=== PATIENT | female | born 1985 | race Caucasian/White ===

== ENCOUNTER 2020-04-26 13:46 | Inpatient (IN) | payer OTHER ==
[~2020-04-26] VITALS: Ht 167.6 cm; Wt 68.2 kg
[~2020-04-26 13:46] MED LIST: DEXAMETHASONE SOD PHOS 4 MG/ML VIAL IVP ONE; FentaNYL CITRATE-PF 100 MCG/2 ML VIAL IVP ONE; HYDROmorphone 2 MG/ML SYRINGE IVP ONE; KETOROLAC TROMETHAMINE 60 MG/2 ML VIAL IM ONE; MIDAZOLAM HCL 2 MG/2 ML VIAL IVP ONE; ONDANSETRON HCL 4 MG/2 ML VIAL IVP ONE; PROPOFOL 1% 20 ML VIAL IVP ONE; ROCURONIUM BROMIDE 10 MG/ML 5 ML VIAL IVP ONE; SUCCINYLCHOLINE CHLORIDE 20 MG/ML 10 ML VIAL IVP ONE
[2020-04-26 16:47] LABS: BASOPHILS % (AUTO) 0.3 % (0.0-2.0); EOSINOPHILS % (AUTO) 0 % (1.0-6.0); HEMATOCRIT 39.5 % (36-46); HEMOGLOBIN 13.7 g/dL (12.0-16.0); LYMPHOCYTES # (AUTO) 0.9 K/uL (1.0-4.8); LYMPHOCYTES % (AUTO) 10.2 % (22.0-44.0); MEAN CORPUSCULAR HGB CONC 34.7 G/dL (31.0-37.0); MEAN CORPUSCULAR VOLUME 92 fL (80-100); MONOCYTES # (AUTO) 0.8 K/uL (0.1-1.0); MONOCYTES % (AUTO) 8.4 % (2.0-9.0); NEUTROPHILS # (AUTO) 7.3 K/uL (1.8-7.7); NEUTROPHILS % (AUTO) 81.1 % (40.0-70.0); PLATELET COUNT (AUTO) 283 K/uL (150-450); RED BLOOD CELL COUNT(AUTO) 4.27 MIL/uL (4.00-5.20); RED CELL DISTRIBUTION WIDTH 13.1 % (11.5-14.5)
[2020-04-26 16:58] LABS: ANION GAP 10 mmol/L (8-16); CALCIUM, TOTAL 9.3 mg/dL (8.8-10.5); CARBON DIOXIDE 24 mmol/L (22-29); CHLORIDE 103 mmol/L (98-107); CREATININE 0.75 mg/dL (0.60-1.30); GLOMERULAR FILTR. RATE CALC > 60 mL/min (>60); GLUCOSE,RANDOM 100 mg/dL (70-110); POTASSIUM 3.9 mmol/L (3.5-5.1); SODIUM SERUM 137 mmol/L (136-145); UREA NITROGEN, BLOOD 8 mg/dL (7-18)
[2020-04-26 17:07] LABS: PROTHROMBIN TIME 10.7 SEC (9.4-11.6)
[2020-04-26 17:12] LABS: ALANINE AMINOTRANSFERASE 45 U/L (12-78); ALBUMIN 3.1 g/dL (3.4-5.0); ALKALINE PHOSPHATASE 86 U/L (46-116); ASPARTATE AMINOTRANSFERASE 33 U/L (15-37); BILIRUBIN,TOTAL 0.5 mg/dL (0.1-1.0); HCG,QUANTITATIVE 1 mIU/mL (0-6); LIPASE 59 U/L (73-393); TOTAL PROTEIN, SERUM 7.2 g/dL (6.4-8.2)
[2020-04-26] MEDS ORDERED: ONDANSETRON HCL 4 MG/2 ML VIAL IVP PRN (20:15)
[2020-04-26] MEDS ORDERED: BUPIVACAINE 0.25%/EPI 1:200,000/PF 10 ML VIAL ONE (21:09)
[2020-04-26] MEDS ORDERED: RINGERS SOLUTION,LACTATED 1,500 ML IV SCH (21:30)
[2020-04-26] MEDS ORDERED: RINGERS SOLUTION,LACTATED 1,000 ML IV ONE (21:53)
[2020-04-26] MEDS ORDERED: FentaNYL CITRATE-PF 100 MCG/2 ML VIAL IVP PRN (22:00)
[2020-04-26] MEDS ORDERED: MEPERIDINE-PF 25 MG/ML VIAL IVP PRN (22:00)
[2020-04-26] MEDS ORDERED: HYDROmorphone 2 MG/ML SYRINGE IVP PRN (22:00)
[2020-04-26] MEDS ORDERED: BACITRACIN 50,000 UNITS/VIAL ONE (23:11)
[2020-04-26] MEDS ORDERED: SODIUM CHLORIDE 0.9% 10 ML ONE (23:11)
[2020-04-26 23:13] LABS: COVID AG,FIA SOURCE NASOPHARYNGEAL
[2020-04-26] MEDS ORDERED: ACETAMINOPHEN 1000 MG/ISO-OSM 100 ML IV ONE (23:53)
[2020-04-27] MEDS ORDERED: ACETAMINOPHEN 1000 MG/ISO-OSM 100 ML IV SCH
[2020-04-27 00:45] VITALS: BP 133/88
[2020-04-27] MEDS: FAMOTIDINE 10 MG/ML 2 ML VIAL IVP SCH ×3 (00:56→20:00)
[2020-04-27] MEDS: CeFAZolin 1 GM/DEXTROSE 50 ML IV SCH ×3 (00:56→16:25)
[2020-04-27] MEDS: MORPHINE SULFATE 2 MG/ML SYRINGE IVP PRN ×2 (00:59→05:27)
[2020-04-27 05:16] VITALS: BP 135/83
[2020-04-27 07:48] VITALS: BP 122/71
[2020-04-27] MEDS: HEPARIN SODIUM,PORCINE 5,000 UNITS/ML VIAL SQ SCH ×3 (08:13→16:26)
[2020-04-27] MEDS: HYDROCODONE/ACETAMINOPHEN 5-325 MG TABLET PO PRN ×3 (11:58→20:01)
[2020-04-27] MEDS ORDERED: SODIUM CHLORIDE 0.9% 250 ML IV ONE (15:23)
[2020-04-27 19:59] VITALS: BP 120/74
[2020-04-28] MEDS: HEPARIN SODIUM,PORCINE 5,000 UNITS/ML VIAL SQ SCH ×3 (01:05→16:00)
[2020-04-28 04:33] VITALS: BP 130/86
[2020-04-28 07:25] LABS: BASOPHILS % (AUTO) 0.5 % (0.0-2.0); EOSINOPHILS % (AUTO) 0.2 % (1.0-6.0); HEMATOCRIT 37.7 % (36-46); HEMOGLOBIN 13.2 g/dL (12.0-16.0); LYMPHOCYTES # (AUTO) 1.6 K/uL (1.0-4.8); LYMPHOCYTES % (AUTO) 16.3 % (22.0-44.0); MEAN CORPUSCULAR HEMOGLOBIN 32.5 pg (26.0-34.0); MEAN CORPUSCULAR HGB CONC 34.9 G/dL (31.0-37.0); MEAN CORPUSCULAR VOLUME 93 fL (80-100); MONOCYTES # (AUTO) 1.6 K/uL (0.1-1.0); MONOCYTES % (AUTO) 16.6 % (2.0-9.0); NEUTROPHILS # (AUTO) 6.4 K/uL (1.8-7.7); NEUTROPHILS % (AUTO) 66.4 % (40.0-70.0); PLATELET COUNT (AUTO) 277 K/uL (150-450); RED BLOOD CELL COUNT(AUTO) 4.06 MIL/uL (4.00-5.20); RED CELL DISTRIBUTION WIDTH 13.1 % (11.5-14.5)
[2020-04-28 07:41] LABS: ANION GAP 12 mmol/L (8-16); CARBON DIOXIDE 22 mmol/L (22-29); CHLORIDE 103 mmol/L (98-107); CREATININE 0.68 mg/dL (0.60-1.30); GLOMERULAR FILTR. RATE CALC > 60 mL/min (>60); GLUCOSE,RANDOM 97 mg/dL (70-110); POTASSIUM 3.5 mmol/L (3.5-5.1); SODIUM SERUM 137 mmol/L (136-145); UREA NITROGEN, BLOOD 10 mg/dL (7-18)
[2020-04-28] MEDS: FAMOTIDINE 10 MG/ML 2 ML VIAL IVP SCH ×2 (07:52→21:07)
[2020-04-28] MEDS: OXYGEN THERAPY IH SCH ×2 (08:00→20:00)
[2020-04-28 08:19] VITALS: BP 124/73
[2020-04-28] MEDS: LACTOBACILLUS ACIDOPHILUS/BULGARICUS TABLET PO SCH ×2 (14:08→21:07)
[2020-04-28 16:00] VITALS: BP 134/86
[2020-04-28 19:00] VITALS: BP 130/89
[2020-04-29 00:28] LABS: C.DIFF GDH ANTIGEN, Stool Positive (Negative); C.DIFF TOXINS A&B, Stool Negative (Negative)
[2020-04-29] MEDS: FAMOTIDINE 10 MG/ML 2 ML VIAL IVP SCH ×2 (07:48→21:37)
[2020-04-29] MEDS: LACTOBACILLUS ACIDOPHILUS/BULGARICUS TABLET PO SCH ×2 (07:48→21:37)
[2020-04-29] MEDS: HEPARIN SODIUM,PORCINE 5,000 UNITS/ML VIAL SQ SCH ×3 (07:49→15:23)
[2020-04-29 07:58] VITALS: BP 126/81
[2020-04-29] MEDS: OXYGEN THERAPY IH SCH ×2 (07:58→21:48)
[2020-04-29 09:02] LABS: BASOPHILS % (AUTO) 0.5 % (0.0-2.0); EOSINOPHILS % (AUTO) 0.1 % (1.0-6.0); HEMATOCRIT 41.5 % (36-46); HEMOGLOBIN 14.7 g/dL (12.0-16.0); LYMPHOCYTES # (AUTO) 1.2 K/uL (1.0-4.8); LYMPHOCYTES % (AUTO) 13.3 % (22.0-44.0); MEAN CORPUSCULAR HEMOGLOBIN 32.4 pg (26.0-34.0); MEAN CORPUSCULAR HGB CONC 35.3 G/dL (31.0-37.0); MEAN CORPUSCULAR VOLUME 92 fL (80-100); MONOCYTES # (AUTO) 1.3 K/uL (0.1-1.0); MONOCYTES % (AUTO) 14.7 % (2.0-9.0); NEUTROPHILS # (AUTO) 6.2 K/uL (1.8-7.7); NEUTROPHILS % (AUTO) 71.4 % (40.0-70.0); PLATELET COUNT (AUTO) 304 K/uL (150-450); RED BLOOD CELL COUNT(AUTO) 4.52 MIL/uL (4.00-5.20); RED CELL DISTRIBUTION WIDTH 12.9 % (11.5-14.5)
[2020-04-29 09:04] LABS: ANION GAP 12 mmol/L (8-16); CALCIUM, TOTAL 9.3 mg/dL (8.8-10.5); CARBON DIOXIDE 24 mmol/L (22-29); CHLORIDE 100 mmol/L (98-107); CREATININE 0.64 mg/dL (0.60-1.30); GLOMERULAR FILTR. RATE CALC > 60 mL/min (>60); GLUCOSE,RANDOM 113 mg/dL (70-110); POTASSIUM 3.4 mmol/L (3.5-5.1); SODIUM SERUM 136 mmol/L (136-145); UREA NITROGEN, BLOOD 13 mg/dL (7-18)
[2020-04-29] MEDS ORDERED: POTASSIUM CHLORIDE 20 MEQ ER TABLET PO ONE (11:45)
[2020-04-29] MEDS: VANCOMYCIN HCL 250 MG/5 ML SOLUTION ORAL.SYG PO SCH ×3 (13:05→21:37)
[2020-04-29] MEDS: HYDROCODONE/ACETAMINOPHEN 5-325 MG TABLET PO PRN (19:23)
[2020-04-29 19:50] VITALS: BP 130/92
[2020-04-30] MEDS: HEPARIN SODIUM,PORCINE 5,000 UNITS/ML VIAL SQ SCH ×3 (00:30→16:35)
[2020-04-30 04:05] VITALS: BP 129/79
[2020-04-30] MEDS: HYDROCODONE/ACETAMINOPHEN 5-325 MG TABLET PO PRN ×4 (06:26→20:34)
[2020-04-30 06:50] LABS: BASOPHILS % (AUTO) 0.8 % (0.0-2.0); EOSINOPHILS % (AUTO) 0.2 % (1.0-6.0); HEMATOCRIT 43.2 % (36-46); HEMOGLOBIN 14.7 g/dL (12.0-16.0); LYMPHOCYTES # (AUTO) 1.6 K/uL (1.0-4.8); LYMPHOCYTES % (AUTO) 18.3 % (22.0-44.0); MEAN CORPUSCULAR HEMOGLOBIN 31.6 pg (26.0-34.0); MEAN CORPUSCULAR VOLUME 93 fL (80-100); MONOCYTES # (AUTO) 1.4 K/uL (0.1-1.0); MONOCYTES % (AUTO) 16.1 % (2.0-9.0); NEUTROPHILS # (AUTO) 5.7 K/uL (1.8-7.7); NEUTROPHILS % (AUTO) 64.6 % (40.0-70.0); PLATELET COUNT (AUTO) 313 K/uL (150-450); RED BLOOD CELL COUNT(AUTO) 4.65 MIL/uL (4.00-5.20); RED CELL DISTRIBUTION WIDTH 13.3 % (11.5-14.5)
[2020-04-30 07:35] LABS: ANION GAP 11 mmol/L (8-16); CALCIUM, TOTAL 9.4 mg/dL (8.8-10.5); CARBON DIOXIDE 23 mmol/L (22-29); CHLORIDE 103 mmol/L (98-107); CREATININE 0.86 mg/dL (0.60-1.30); GLOMERULAR FILTR. RATE CALC > 60 mL/min (>60); GLUCOSE,RANDOM 127 mg/dL (70-110); POTASSIUM 3.9 mmol/L (3.5-5.1); SODIUM SERUM 137 mmol/L (136-145); UREA NITROGEN, BLOOD 14 mg/dL (7-18)
[2020-04-30 07:59] VITALS: BP 117/64
[2020-04-30] MEDS: OXYGEN THERAPY IH SCH ×2 (08:00→20:12)
[2020-04-30] MEDS: FAMOTIDINE 10 MG/ML 2 ML VIAL IVP SCH (08:52)
[2020-04-30] MEDS: LACTOBACILLUS ACIDOPHILUS/BULGARICUS TABLET PO SCH ×2 (08:53→20:10)
[2020-04-30] MEDS: VANCOMYCIN HCL 250 MG/5 ML SOLUTION ORAL.SYG PO SCH ×4 (08:55→20:13)
[2020-04-30 15:40] VITALS: BP 131/76
[2020-04-30] MEDS ORDERED: ZOLPIDEM TARTRATE 5 MG TABLET PO ONE (19:45)
[2020-04-30 20:05] VITALS: BP 124/78
[2020-04-30] MEDS: FAMOTIDINE 20 MG TABLET PO SCH (20:10)
[2020-05-01] MEDS: HYDROCODONE/ACETAMINOPHEN 5-325 MG TABLET PO PRN ×4 (01:01→20:08)
[2020-05-01 04:00] VITALS: BP 123/71
[2020-05-01 07:29] LABS: BASOPHILS % (AUTO) 0.7 % (0.0-2.0); EOSINOPHILS % (AUTO) 1.5 % (1.0-6.0); HEMATOCRIT 45.3 % (36-46); HEMOGLOBIN 15.4 g/dL (12.0-16.0); LYMPHOCYTES # (AUTO) 1.9 K/uL (1.0-4.8); LYMPHOCYTES % (AUTO) 21.9 % (22.0-44.0); MEAN CORPUSCULAR HEMOGLOBIN 31.6 pg (26.0-34.0); MEAN CORPUSCULAR HGB CONC 33.9 G/dL (31.0-37.0); MEAN CORPUSCULAR VOLUME 93 fL (80-100); MONOCYTES # (AUTO) 1.6 K/uL (0.1-1.0); MONOCYTES % (AUTO) 18.6 % (2.0-9.0); NEUTROPHILS % (AUTO) 57.3 % (40.0-70.0); PLATELET COUNT (AUTO) 316 K/uL (150-450); RED BLOOD CELL COUNT(AUTO) 4.85 MIL/uL (4.00-5.20); RED CELL DISTRIBUTION WIDTH 13.2 % (11.5-14.5)
[2020-05-01] MEDS: OXYGEN THERAPY IH SCH ×2 (08:00→19:25)
[2020-05-01 08:08] LABS: ANION GAP 15 mmol/L (8-16); CALCIUM, TOTAL 9.8 mg/dL (8.8-10.5); CARBON DIOXIDE 22 mmol/L (22-29); CHLORIDE 101 mmol/L (98-107); CREATININE 0.79 mg/dL (0.60-1.30); GLOMERULAR FILTR. RATE CALC > 60 mL/min (>60); GLUCOSE,RANDOM 100 mg/dL (70-110); POTASSIUM 3.3 mmol/L (3.5-5.1); SODIUM SERUM 138 mmol/L (136-145); UREA NITROGEN, BLOOD 13 mg/dL (7-18)
[2020-05-01] MEDS: LACTOBACILLUS ACIDOPHILUS/BULGARICUS TABLET PO SCH ×2 (08:20→20:06)
[2020-05-01] MEDS: FAMOTIDINE 20 MG TABLET PO SCH ×2 (08:20→20:06)
[2020-05-01] MEDS: VANCOMYCIN HCL 250 MG/5 ML SOLUTION ORAL.SYG PO SCH ×4 (08:20→19:58)
[2020-05-01] MEDS: HEPARIN SODIUM,PORCINE 5,000 UNITS/ML VIAL SQ SCH ×3 (08:21→15:31)
[2020-05-01 08:28] VITALS: BP 102/76
[2020-05-01] MEDS ORDERED: POTASSIUM CHLORIDE 20 MEQ ER TABLET PO ONE (13:30)
[2020-05-01] MEDS ORDERED: ACID1TAB8 PO (14:02)
[2020-05-01] MEDS ORDERED: LACT1CAP70 PO (14:03)
[2020-05-01] MEDS ORDERED: VANCOPO PO (14:06)
[2020-05-01 19:37] VITALS: BP 110/61
[2020-05-01] MEDS: ZOLPIDEM TARTRATE 5 MG TABLET PO PRN (20:06)
[2020-05-02] MEDS: HYDROCODONE/ACETAMINOPHEN 5-325 MG TABLET PO PRN ×3 (00:08→12:56)
[2020-05-02 04:37] VITALS: BP 103/64
[2020-05-02] MEDS: OXYGEN THERAPY IH SCH ×2 (08:00→20:00)
[2020-05-02] MEDS: ACETAMINOPHEN 325 MG TABLET PO PRN (08:05)
[2020-05-02] MEDS: FAMOTIDINE 20 MG TABLET PO SCH ×2 (08:06→21:05)
[2020-05-02] MEDS: LACTOBACILLUS ACIDOPHILUS/BULGARICUS TABLET PO SCH ×2 (08:06→21:05)
[2020-05-02] MEDS: VANCOMYCIN HCL 250 MG/5 ML SOLUTION ORAL.SYG PO SCH ×4 (08:06→21:05)
[2020-05-02] MEDS: HEPARIN SODIUM,PORCINE 5,000 UNITS/ML VIAL SQ SCH ×3 (08:07→15:05)
[2020-05-02 08:15] VITALS: BP 124/70
[2020-05-02 16:30] VITALS: BP 116/69
[2020-05-02 19:00] VITALS: BP 108/63
[2020-05-03] MEDS: HEPARIN SODIUM,PORCINE 5,000 UNITS/ML VIAL SQ SCH ×4 (01:41→23:33)
[2020-05-03 07:57] VITALS: BP 110/69
[2020-05-03] MEDS: OXYGEN THERAPY IH SCH ×2 (08:00→19:57)
[2020-05-03] MEDS: FAMOTIDINE 20 MG TABLET PO SCH ×2 (08:55→19:54)
[2020-05-03] MEDS: LACTOBACILLUS ACIDOPHILUS/BULGARICUS TABLET PO SCH ×2 (08:58→19:54)
[2020-05-03] MEDS: VANCOMYCIN HCL 250 MG/5 ML SOLUTION ORAL.SYG PO SCH ×4 (08:58→19:54)
[2020-05-03 10:36] VITALS: BP 120/78
[2020-05-03] MEDS: ACETAMINOPHEN 325 MG TABLET PO PRN (10:36)
[2020-05-03] MEDS ORDERED: ONDANSETRON HCL 4 MG TABLET PO PRN (13:15)
[2020-05-03] MEDS ORDERED: POTASSIUM CHLORIDE 20 MEQ ER TABLET PO ONE (13:45)
[2020-05-03 19:40] VITALS: BP 144/75
[2020-05-03] MEDS: ZOLPIDEM TARTRATE 5 MG TABLET PO PRN (21:12)
[2020-05-04 04:34] VITALS: BP 128/73
== END 2020-05-04 07:55 | DRG 354 ==
LOC: EMS 13:46 → 6S 19:56
PROVIDERS: ADMIT Internal Medicine; ATTEND Internal Medicine
PROC: 0WUF0JZ Supplement Abdominal Wall with Synthetic Substitute, Open Approach (ICD-10-PCS; principal; 2020-04-26 21:30)
DX: K43.6 Other and unspecified ventral hernia with obstruction, without gangrene (principal); E44.0 Moderate protein-calorie malnutrition; A04.72 Enterocolitis due to Clostridium difficile, not specified as recurrent; F11.10 Opioid abuse, uncomplicated; E86.0 Dehydration; F19.10 Other psychoactive substance abuse, uncomplicated; Z68.24 Body mass index [BMI] 24.0-24.9, adult; F17.200 Nicotine dependence, unspecified, uncomplicated; Z20.828 Contact with and (suspected) exposure to other viral communicable diseases
CPT/HCPCS: 74176; 83605; 84132; 87045; 87324; 87426; 87449; G0238; J0131; J0330; J0690; J1100; J1170; J1644; J1885; J2250; J2270; J2405; J2704; J3010; J3490; J7050; J7120; Q0162